=== PATIENT | male | born 1955 | race Caucasian/White ===

== ENCOUNTER 2020-07-26 07:37 | Day surgery (SDC) | payer OTHER ==
[~2020-07-26 07:37] MED LIST: ASACOL HD800 MG PO; HYZAAR 100-12.1 EACH PO; IBUPROFEN800 MG PO; ORPH100T PO; VYTORIN 10-201 EACH PO
[2020-07-26] MEDS ORDERED: PERCOCET 5-3251 EACH PO (15:03)
== END 2020-07-26 22:00 | disposition home or self-care (01) ==
LOC: CIR.AMB 07:37
PROVIDERS: ATTEND Surgery
DX: K60.3 Anal fistula (principal); K51.018 Ulcerative (chronic) pancolitis with other complication; Z20.822 Contact with and (suspected) exposure to COVID-19

== ENCOUNTER 2024-09-07 06:15 | Day surgery (SDC) | payer OTHER ==
[2024-08-31 14:35] VITALS: BP 160/90
[~2024-09-07] VITALS: Ht 167.6 cm; Wt 79.4 kg
[~2024-09-07 06:15] MED LIST changes: +LODINE300 MG; +PERCOCET 5-3251 EACH PO
[2024-09-07] MEDS ORDERED: LIDOCAINE HCL 1%/EPINEPHRINE 20ML VIAL IJ ONE (10:00)
[2024-09-07] MEDS ORDERED: CEFTRIAXONE SODIUM 2,000 MG VIAL IV ONE (10:00)
[2024-09-07] MEDS ORDERED: METRONIDAZOLE/SODIUM CHLORIDE 500 MG/100 ML PIGGYBACK IV ONE (10:00)
[2024-09-07] MEDS ORDERED: POVIDONE-IODINE 118 ML BOTT TOP ONE (10:00)
[2024-09-07] MEDS ORDERED: BUPIVACAINE HCL 30 ML VIAL IJ ONE (10:00)
[2024-09-07] MEDS ORDERED: HEMOSTATIC MATRIX 1 KIT KIT TOP ONE (10:00)
[2024-09-07] MEDS ORDERED: DIBUCAINE 30 GM TUBE RECTAL ONE (10:00)
[2024-09-07] MEDS ORDERED: TAMSULOSIN HCL 0.4 MG CAP PO ONE ×2 (12:15→13:34)
[2024-09-07] MEDS ORDERED: OXYCODONE HCL5 MG PO (12:57)
== END 2024-09-07 15:55 | disposition home or self-care (01) ==
LOC: CIR.AMB 06:15
PROVIDERS: ATTEND Surgery
DX: K60.322 Anal fistula, complex, persistent (principal); K62.89 Other specified diseases of anus and rectum; K50.113 Crohn's disease of large intestine with fistula